=== PATIENT | male | born 1960 | race Caucasian/White ===

== ENCOUNTER 2018-02-08 17:51 | Observation (INO) | payer MEDICAID, OTHER ==
[2018-02-08 19:52] LABS: ADD MAN DIFF? NO
[2018-02-08 19:55] LABS: WHITE BLOOD COUNT 7.3 10^3/ul (4.8-10.8)
[2018-02-08 19:55] LABS: ABNORMAL IP MESSAGE 1; BASOPHILS % 0.4 % (0.0-2.0); EOSINOPHILS % 0.1 % (0.0-7.0); HEMOGLOBIN 15.4 g/dl (14.0-18.0); LYMPHOCYTES # 0.4 10^3/ul (0.8-2.9); LYMPHOCYTES % 5.9 % (15.0-51.0); MEAN CORPUSCULAR HEMOGLOBIN 31.2 pg (29.0-33.0); MEAN CORPUSCULAR VOLUME 89.1 fl (82.0-101.0); MEAN PLATELET VOLUME 10.1 fl (7.4-10.4); MONOCYTE # 0.5 10^3/ul (0.3-0.9); MONOCYTES % 7.3 % (0.0-11.0); NEUTROPHIL # 6.2 10^3/ul (1.6-7.5); NEUTROPHILS % 85.7 % (39.0-77.0); PLATELET COUNT 204 10^3/UL (140-415); POSITIVE DIFF @See below; RED BLOOD COUNT 4.94 10^6/ul (4.70-6.10); RED CELL DISTRIBUTION WIDTH 11.9 % (11.5-14.5)
[2018-02-08] MEDS: SOD CHLORIDE 0.9% 1,000 ML IV (20:05)
[2018-02-08] MEDS: LIDOCAINE/MYLANTA 40 ML BTL PO (20:06)
[2018-02-08] MEDS: FAMOTIDINE 20 MG INJ IV (20:06)
[2018-02-08 20:19] LABS: INR 0.87; PARTIAL THROMBOPLASTIN TIME 25.1 Sec (25.0-35.0); PROTIME 11.9 Sec (11.9-14.9); PT RATIO 0.9
[2018-02-08 20:20] LABS: ALANINE AMINOTRANSFERASE 115 IU/L (13-69); ALBUMIN 4.9 g/dl (3.3-4.9); ALBUMIN/GLOBULIN RATIO 1.75; ALKALINE PHOSPHATASE 104 IU/L (42-121); ANION GAP 22 (8-16); ASPARTATE AMINO TRANSFERASE 91 IU/L (15-46); BILIRUBIN,INDIRECT 1.1 mg/dl (0-1.1); BILIRUBIN,TOTAL 1.1 mg/dl (0.2-1.3); BLOOD UREA NITROGEN 18 mg/dl (7-20); CALCIUM 9.1 mg/dl (8.4-10.2); CARBON DIOXIDE 26 mmol/L (21-31); CHLORIDE 95 mmol/L (97-110); CREATININE 0.86 mg/dl (0.61-1.24); LIPASE 108 U/L (23-300); POTASSIUM 4.7 mmol/L (3.5-5.1); SODIUM 138 mmol/L (135-144); TOTAL PROTEIN 7.7 g/dl (6.1-8.1)
[2018-02-08 20:26] LABS: GLUCOSE 432 mg/dl (70-220)
[2018-02-08 20:31] LABS: TROPONIN-I 0.022 ng/ml (0.000-0.120)
[2018-02-08] MEDS: FOLIC ACID 1 MG TAB PO (20:56)
[2018-02-08] MEDS: THIAMINE 100 MG TAB PO (20:58)
[2018-02-08 23:59] LABS: TROPONIN-I 0.028 ng/ml (0.000-0.120)
[2018-02-09] MEDS ORDERED: ONDANSETRON 4 MG INJ IV ×2 (00:30→02:00)
[2018-02-09] MEDS ORDERED: ACETAMINOPHEN 325 MG TAB PO ×2 (00:30→02:00)
[2018-02-09] MEDS: ASPIRIN 81 MG TAB PO ×2 (00:51→09:10)
[2018-02-09 00:58] LABS: ETHANOL < 10.0 mg/dl
[2018-02-09] MEDS ORDERED: morphine 2 MG INJ IV (02:00)
[2018-02-09] MEDS ORDERED: NACL 0.9% 3 ML SYG IV (02:00)
[2018-02-09] MEDS ORDERED: NITROGLYCERIN (SL) 0.4 MG TAB SL (02:00)
[2018-02-09] MEDS: INSULIN ASPART [NOVOLOG] 3 ML PEN SC ×7 (02:16→20:55)
[2018-02-09] MEDS: ACCU-CHEK XX (02:19)
[2018-02-09] MEDS ORDERED: GLUCOSE GEL 15 GRAM TUBE BUCCAL (02:30)
[2018-02-09] MEDS ORDERED: GLUCOSE GEL 15 GRAM TUBE PO ×2 (02:30)
[2018-02-09] MEDS ORDERED: GLUCAGON 1 MG INJ IM (02:30)
[2018-02-09] MEDS ORDERED: DEXTROSE 50% 50 ML SYRINGE IV ×2 (02:30)
[2018-02-09 05:21] LABS: ADD MAN DIFF? NO
[2018-02-09 05:29] LABS: BASOPHILS % 0.6 % (0.0-2.0); EOSINOPHILS # 0.1 10^3/ul (0.0-0.5); EOSINOPHILS % 1.5 % (0.0-7.0); HEMATOCRIT 40.6 % (42.0-52.0); HEMOGLOBIN 14.2 g/dl (14.0-18.0); LYMPHOCYTES # 0.7 10^3/ul (0.8-2.9); LYMPHOCYTES % 21.7 % (15.0-51.0); MEAN CORPUSCULAR HEMOGLOBIN 31.8 pg (29.0-33.0); MEAN PLATELET VOLUME 10.2 fl (7.4-10.4); MONOCYTE # 0.4 10^3/ul (0.3-0.9); MONOCYTES % 11.9 % (0.0-11.0); NEUTROPHIL # 2.2 10^3/ul (1.6-7.5); PLATELET COUNT 164 10^3/UL (140-415); RED BLOOD COUNT 4.46 10^6/ul (4.70-6.10); RED CELL DISTRIBUTION WIDTH 11.8 % (11.5-14.5)
[2018-02-09 05:29] LABS: WHITE BLOOD COUNT 3.4 10^3/ul (4.8-10.8)
[2018-02-09 05:53] LABS: ALANINE AMINOTRANSFERASE 90 IU/L (13-69); ALBUMIN 3.9 g/dl (3.3-4.9); ALBUMIN/GLOBULIN RATIO 1.69; ALKALINE PHOSPHATASE 73 IU/L (42-121); ANION GAP 14 (8-16); ASPARTATE AMINO TRANSFERASE 63 IU/L (15-46); BILIRUBIN,INDIRECT 0.7 mg/dl (0-1.1); BILIRUBIN,TOTAL 0.7 mg/dl (0.2-1.3); BLOOD UREA NITROGEN 23 mg/dl (7-20); CALCIUM 8.8 mg/dl (8.4-10.2); CARBON DIOXIDE 29 mmol/L (21-31); CHLORIDE 100 mmol/L (97-110); CHOL/HDL RATIO 4.4 RATIO; CHOLESTEROL 305 mg/dl (100-200); CREATINE KINASE 72 IU/L (23-200); CREATININE 0.88 mg/dl (0.61-1.24); GLUCOSE 302 mg/dl (70-220); HDL CHOLESTEROL 68 mg/dl (30-78); LDL CHOLESTEROL,CALCULATED 190 mg/dl; MAGNESIUM 1.9 mg/dl (1.7-2.5); POTASSIUM 4.1 mmol/L (3.5-5.1); SODIUM 139 mmol/L (135-144); TOTAL PROTEIN 6.2 g/dl (6.1-8.1); TRIGLYCERIDES 233 mg/dl (0-149)
[2018-02-09] MEDS ORDERED: LORAZEPAM 2 MG INJ IV (06:30)
[2018-02-09 07:27] LABS: HAAIG REFLEX REFLEX FILED
[2018-02-09 07:52] LABS: CK INDEX 1.4; TROPONIN-I 0.027 ng/ml (0.000-0.120)
[2018-02-09 07:56] LABS: CK-MB 0.99 ng/ml (0.0-2.4)
[2018-02-09 09:43] LABS: D-DIMER 249.55 ng/ml (<460)
[2018-02-09 10:33] LABS: HEPATITIS B SURFACE ANTIGEN NEGATIVE (NEGATIVE)
[2018-02-09 10:51] LABS: HEPATITIS B CORE ANTIBODY NEGATIVE (NEGATIVE); HEPATITIS C VIRAL ANTIBODY NEGATIVE (NEGATIVE)
[2018-02-09] MEDS: Discontinue current oral sulfonylureas (glyburide, glipizide, and/or glimepiride) prior to XX (10:51)
[2018-02-09] MEDS: HYPOGLYCEMIA PROTOCOL when Glucose is <70 mg/dL or symptomatic <90 mg/dL. XX (10:52)
[2018-02-09] MEDS ORDERED: morphine LIQ (10 MG/5 ML) CUP PO (12:30)
[2018-02-09] MEDS: LISINOPRIL 20 MG TAB PO (16:06)
[2018-02-09] MEDS: REGADENOSON 0.4 MG/5 ML SYG (19:55)
[2018-02-09] MEDS: INSULIN GLARGINE [LANtus] 3 ML PEN SC (21:04)
[2018-02-09] MEDS: ATORVASTATIN 40 MG TAB PO (21:07)
[2018-02-10] MEDS ORDERED: ACCU-CHEK XX (02:00)
[2018-02-10] MEDS: ACCU-CHEK XX (02:00)
[2018-02-10] MEDS: INSULIN ASPART [NOVOLOG] 3 ML PEN SC ×7 (07:34→21:04)
[2018-02-10] MEDS: LISINOPRIL 20 MG TAB PO (07:57)
[2018-02-10] MEDS: ASPIRIN 81 MG TAB PO (08:35)
[2018-02-10] MEDS ORDERED: ASPIRIN 81 MG TAB PO (09:00)
[2018-02-10] MEDS: INSULIN GLARGINE [LANtus] 3 ML PEN SC (21:03)
[2018-02-10] MEDS: ATORVASTATIN 40 MG TAB PO (22:54)
[2018-02-11] MEDS: ACCU-CHEK XX (02:00)
[2018-02-11] MEDS: INSULIN ASPART [NOVOLOG] 3 ML PEN SC ×4 (07:50→12:06)
[2018-02-11] MEDS: ASPIRIN 81 MG TAB PO (09:11)
[2018-02-11] MEDS: LISINOPRIL 20 MG TAB PO (09:11)
== END 2018-02-11 16:19 | disposition home or self-care (01) ==
LOC: MS3 02-09 00:30 → E/R 17:51
DX: R07.9 Chest pain, unspecified (principal); E11.65 Type 2 diabetes mellitus with hyperglycemia; E78.5 Hyperlipidemia, unspecified; I10 Essential (primary) hypertension; R74.0 Nonspecific elevation of levels of transaminase and lactic acid dehydrogenase [LDH]; F10.10 Alcohol abuse, uncomplicated
CPT/HCPCS: 36415; 71045; 76705; 78452; 80053; 80061; 80307; 82550; 82553; 82962; 83036; 83690; 83735; 84443; 84484; 85025; 85378; 85610; 85730; 86704; 86709; 86803; 87340; 93005; 93017; 93306; 96374; 99285-25